=== PATIENT | male | born 1955 | race Caucasian/White ===

== ENCOUNTER 2022-07-01 10:34 | Outpatient (CLI) | payer BC, SELFPAY ==
[2022-07-01 13:51] LABS: Kit Draw Collected
== END 2022-07-01 10:35 | disposition home or self-care (01) ==
PROVIDERS: PCP Internal Medicine; Visit Provider Clinical Nurse Specialist
DX: E78.00 Pure hypercholesterolemia, unspecified (principal); I10 Essential (primary) hypertension; Z12.5 Encounter for screening for malignant neoplasm of prostate
CPT/HCPCS: 36415

== ENCOUNTER → 2022-07-04 11:04 | Outpatient (CLI) | payer BC, SELFPAY ==
--- NOTE | ~2022-07-04 | US_ITS ---
EXAMINATION: US right upper quadrant DATE: 07/04/2022 11:21 INDICATION: R10.11 - Right upper quadrant pain TECHNIQUE: Multiple grayscale and Doppler ultrasound images of the right upper quadrant were obtained . COMPARISON: None available. FINDINGS: The visualized portions of the pancreas are normal. The liver is mildly enlarged with incre ased echogenicity and normal echotexture. No surface nodularity. Normal hepatopetal flow in the main portal vein. The gallbladder is normal with no abnormal wall thickening, pericholecystic fluid or sto bella. The common bile duct measures 5 mm. There was no sonographic Montano sign. IMPRESSION: Hepatomegaly. Echogenic liver, most commonly due to steatosis but also can be seen with hepatitis and fibrosis. Reviewed, dictated and finalized at location K. NG MARKER IMPRESSION: Hepatomegaly. Echogenic liver, most commonly due to steatosis but also can be s een with hepatitis and fibrosis.
== END ==
PROVIDERS: PCP Clinical Nurse Specialist; Visit Provider Clinical Nurse Specialist
DX: R10.11 Right upper quadrant pain (principal); R16.0 Hepatomegaly, not elsewhere classified
CPT/HCPCS: 76705

== ENCOUNTER 2022-07-11 07:36 | Outpatient (CLI) | payer BC, SELFPAY ==
--- NOTE | ~2022-07-11 | NM_ITS ---
EXAMINATION: NM hepatobiliary wo pharm DATE: 07/11/2022 11:13 INDICATION: Right upper quadrant abdominal pain COMPARISON: None. TECHNIQUE: 5 mCi Tc-99m mebrofenin (Choletec) was administered intravenously. Scintigraphic images o f the abdomen were obtained for one hour. At the 1 hour time point, the patient drank 8 oz Ensure, an d imaging was continued for 60 minutes. Gallbladder ejection fraction was calculated by the technolog ist. FINDINGS: There is normal clearance of radiotracer from the blood pool. There is homogeneous tracer u ptake by the liver. Activity progresses to the bowel and gallbladder. The gallbladder ejection fract ion (GBEF) is 91%. Note that with this technique, normal GBEF >= 33%. IMPRESSION: 1. Normal hepatobiliary scan Reviewed, dictated and finalized at location B. [employer]
== END 2022-07-11 07:37 | disposition home or self-care (01) ==
PROVIDERS: PCP Clinical Nurse Specialist; Visit Provider Clinical Nurse Specialist
DX: R10.11 Right upper quadrant pain (principal)
CPT/HCPCS: 78226; A9537

== ENCOUNTER → 2022-07-29 09:18 | Outpatient (CLI) | payer BC, SELFPAY ==
--- NOTE | ~2022-07-29 | CT_ITS ---
CT of the Abdomen and Pelvis: Indication: Right upper quadrant pain Technique: 2.5 mm axial scans were obtained through the abdomen and pelvis prior to and following in travenous administration of 100 cc of Omnipaque 350. Dose reduction technique was used on this scan b y utilizing automated exposure control and iterative reconstruction technique. The dose-length produc t (DLP) was 2456.32 mGy-cm. Findings: Scans through the lung bases are unremarkable. Diffuse fatty infiltration of the liver noted. The spleen, pancreas, gallbladder, left adrenal gland, and kidneys are within normal limits. 2 cm right adrenal lipoma or myelolipoma is present, benign. N o evidence of aortic aneurysm. No lymphadenopathy. No bowel obstruction or bowel wall thickening. Extensive sigmoid diverticulosis noted. Normal appendi x. Images through the pelvis were performed. Urinary bladder unremarkable. Prostate gland and seminal ve sicles are unremarkable. Impression: Diffuse fatty infiltration of the liver. 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 Reviewed, dictated and finalized at location . LLIGENCE MANAGER Impression: Diffuse fatty infiltration of the liver. 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
[2022-07-29 09:42] LABS: Estimated Glomerular Filt Rate > 60
== END ==
PROVIDERS: PCP Internal Medicine; Visit Provider Clinical Nurse Specialist
DX: K76.0 Fatty (change of) liver, not elsewhere classified (principal); R10.11 Right upper quadrant pain; D17.79 Benign lipomatous neoplasm of other sites
CPT/HCPCS: 74178; Q9967

== ENCOUNTER 2022-08-24 00:19 | Day surgery (SDC) | payer BC, SELFPAY ==
[2022-08-15 08:33] VITALS: BMI 32.5
--- NOTE | 2022-08-23 15:02 | PM.HPGS ---
History of Present Illness History of Present Illness Consent: Risks, benefits, and alternatives have been discussed and questions answered. Patient agrees to proceed with procedure. Chief complaint: GERD, family hx colon ca Narrative: Sonny Gonzales is a 66 year old male who has a long history of acid reflux. He has been taking omeprazole p.r.n.. He is now having more symptoms. Eating steak makes him more uncomfortable. often the food will seem to get stuck and he will find that he needs to stop eating. He will bring up thick phlegm He is due for colon cancer screening. His last colonoscopy was about 5 years ago revealing diverticulosis. His father had colon cancer at age of 62. Review of Systems Review of Systems: All systems reviewed & are unremarkable except as noted in HPI and below PMFSH Past Medical History Medical History Gastroesophageal reflux disease Hypercholesterolemia Hyperglycemia Hypertension Obesity Surgical History Surgical History History of knee surgery Family History Family History Father Diabetes mellitus Myocardial infarction Vasculitis Mother Asthma Adult respiratory distress syndrome Social History Social History Social History: Caffeine-coffee Years smoked: 20 Smoking status: Never smoker Tobacco type: cigarettes Smoking end date: 07/24/02 Alcohol intake: current Drinks per week: 10 Alcohol use details: 3-4 days a week Living arrangements: with family Spiritual care concerns: No Meds Home Medications and Allergies Home Medications Medication Instructions Recorded Confirmed Type omeprazole 20 mg capsule,delayed 20 mg PO DAILY PRN acid reflux #90 05/20/21 08/15/22 Rx release caps lisinopril 20 mg tablet 20 mg PO DAILY #90 tabs 06/09/22 08/15/22 Rx atorvastatin 10 mg tablet 10 mg PO QHS #90 tabs 08/08/22 08/15/22 Rx Allergies Allergy/AdvReac Type Severity Reaction Status Date / Time nitroglycerin Allergy Unknown low heart Verified 08/15/22 08:31 rate Exam Const: General: alert Orientation/consciousness: patient oriented x3 Resp: Auscultation: clear to auscultation bilaterally Cardio: Rhythm: regular rhythm GI: GI Palp: Yes Soft to palpation and No Tenderness to palpation present (GI) Neuro: General: patient oriented x3 Assessment and Plan Assessment and plan (1) Gastroesophageal reflux disease: Qualifiers: Esophagitis presence: without esophagitis Qualified Code(s): K21.9 - Gastro-esophageal reflux disease without esophagitis Code(s): K21.9 - Gastro-esophageal reflux disease without esophagitis Status: Acute Assessment and Plan: EGD with possible biopsy or dilatation or cautery. (2) Screening for colon cancer: Code(s): Z12.11 - Encounter for screening for malignant neoplasm of colon Status: Acute Assessment and Plan: Colonoscopy with possible biopsy or polypectomy or cautery or injection of substances.
[2022-08-24 08:07] VITALS: PULSE 78; RESP 18; TEMP 36.7; O2SAT 100; BMI 32.9
[2022-08-24] MEDS: LACTATED RINGERS 1,000 ML 150 ML IV CONT (08:34)
--- NOTE | 2022-08-24 09:15 | WPDANESEPPF ---
Anes - Initial Pre Proc Eval Procedure: Operation Date: 08/24/22 09:30 Proposed Procedures p Esophagogastroduodenoscopy & Colonoscopy - Ricky Jj MD Date/Time: 08/24/22 09:15 Surgeon: Ricky Jj MD Pre Op Diagnosis: GERD, family hx colon ca Patient Data Age: 66 Gender: M Height: 1.78 m Weight: 104.2 kg Last Vital Signs Temp 98.1 F 08/24/22 08:07 Pulse 78 08/24/22 08:07 Resp 18 08/24/22 08:07 Pulse Ox 100 08/24/22 08:07 O2 Del Method Room Air 08/24/22 08:07 Allergies Allergy/AdvReac Type Severity Reaction Status Date / Time nitroglycerin Allergy Unknown low heart Verified 08/15/22 08:31 rate Home Medications Medication Instructions Recorded Confirmed Type omeprazole 20 mg capsule,delayed 20 mg PO DAILY PRN acid reflux #90 05/20/21 08/15/22 Rx release caps lisinopril 20 mg tablet 20 mg PO DAILY #90 tabs 06/09/22 08/15/22 Rx atorvastatin 10 mg tablet 10 mg PO QHS #90 tabs 08/08/22 08/15/22 Rx Patient hx anesthesia problems: none Family hx anesthesia problems: none Results Review: All pre-operative results and documents have been reviewed as part of the pre-operative evaluation. [facility] Past Medical History Medical History Gastroesophageal reflux disease Hypercholesterolemia Hyperglycemia Hypertension Obesity Surgical History Surgical History History of knee surgery Family History Family History Father Diabetes mellitus Myocardial infarction Vasculitis Mother Asthma Adult respiratory distress syndrome Social History Social History Social History: Caffeine-coffee Years smoked: 20 Smoking status: Never smoker Tobacco type: cigarettes Smoking end date: 07/24/02 Alcohol intake: current Drinks per week: 10 Alcohol use details: 3-4 days a week Living arrangements: with family Spiritual care concerns: No Anes - Eval Final PreProcedure Day of Procedure 08/24/22 09:15 Patient weight: obese Heart: regular rate and rhythm Lungs: clear to auscultation Airway: Mallampati scale class III Neurological: alert and oriented Last oral intake: >/= 8 hours ASA classification: III Emergent: no Anesthetic plan: proceed Anesthesia type and monitoring: general GIVS and standard monitoring Results Review: All pre-operative results and documents have been reviewed as part of the pre-operative evaluation. Informed Consent: The patient's anesthetic plan and its attendant risks and benefits were discussed with the patient/family/POA. Questions were solicited and answers provided to the satisfaction of the patient/family/POA.
--- NOTE | 2022-08-24 09:54 | SUR.OPER ---
EGD started at 926 and ended at 932. Colonoscopy started at 938 and ended at 54.
[2022-08-24 09:57] VITALS: PULSE 88; RESP 16; O2SAT 100
[2022-08-24 10:07] VITALS: BP 116/84; PULSE 77; RESP 24; O2SAT 100
[2022-08-24 10:17] VITALS: BP 124/77; PULSE 74; RESP 22; O2SAT 100
== END 2022-08-24 10:20 | disposition home or self-care (01) ==
PROVIDERS: PCP Internal Medicine; Visit Provider Internal Medicine Gastroenterology
PROC: 0DJ08ZZ Inspection of Upper Intestinal Tract, Via Natural or Artificial Opening Endoscopic (ICD-10-PCS; CPT 43235; principal; 2022-08-24 09:30)
DX: Z12.11 Encounter for screening for malignant neoplasm of colon (principal); K57.30 Diverticulosis of large intestine without perforation or abscess without bleeding; D12.4 Benign neoplasm of descending colon; Z80.0 Family history of malignant neoplasm of digestive organs; K21.00 Gastro-esophageal reflux disease with esophagitis, without bleeding; K22.2 Esophageal obstruction; K22.89 Other specified disease of esophagus; K44.9 Diaphragmatic hernia without obstruction or gangrene; I10 Essential (primary) hypertension; E78.00 Pure hypercholesterolemia, unspecified; E66.9 Obesity, unspecified; Z68.33 Body mass index [BMI] 33.0-33.9, adult; Z87.891 Personal history of nicotine dependence
CPT/HCPCS: 45385; 43249; 88305; 88312; 88342; C1726; J2704; J7120

== ENCOUNTER 2023-04-11 08:38 | Outpatient (CLI) | payer MEDICARE, SELFPAY ==
[2023-04-11 16:40] LABS: Basophils Percent Auto 0.5 % (0.2-1.2); Eosinophils Absolute Auto 0.1 K/mm3 (0-0.3); Eosinophils Percent Auto 1.7 % (0-4.4); Hematocrit 46.2 % (42.0-52.0); Hemoglobin 15.4 g/dL (14.0-18.0); Immature Granulocyte Absolute 0.04 K/mm3 (0.00-0.031); Immature Granulocyte Percent A 0.5 % (0-0.5); Lymphocytes Absolute Auto 1.79 K/mm3 (0.9-3.2); Lymphocytes Percent Auto 21.2 % (18.3-44.2); Mean Corpuscular HGB Conc 33.3 g/dl (32-36); Mean Corpuscular Hemoglobin 32.6 pg (26-34); Mean Corpuscular Volume 97.9 fl (80-100); Mean Platelet Volume 9.5 fl (7.4-10.4); Monocytes Absolute Auto 0.8 K/mm3 (0.1-0.6); Monocytes Percent Auto 9.3 % (2.6-8.5); Neutrophils Absolute Auto 5.7 K/mm3 (1.3-6.7); Neutrophils Percent Auto 66.8 % (45.5-73.1); Platelet Count Result 281 k/mm3 (150-375); Red Blood Count 4.72 M/mm3 (4.6-6.20); Red Cell Distribution Width 12.7 % (11.5-14.5); White Blood Count 8.5 K/mm3 (4.5-10.0)
[2023-04-11 17:08] LABS: Alanine Aminotransferase 69 U/L (6-50); Albumin Level 4.3 g/dL (3.5-5.1); Alkaline Phosphatase 68 U/L (38-126); Anion Gap 8 mmol/L (8-16); Aspartate Amino Transferase 58 U/L (17-59); Bilirubin,Total 0.8 mg/dL (0.2-1.3); Blood Urea Nitrogen 14 mg/dL (9-20); Calcium 8.7 mg/dL (8.4-10.2); Carbon Dioxide 28 mmol/L (22-30); Chloride 102 mmol/L (98-107); Cholesterol 174 mg/dL (0-200); Estimated Glomerular Filt Rate > 60; Glucose 99 mg/dL (65-110); HDL Direct 49 mg/dL; Potassium 4.6 mmol/L (3.4-5.0); Sodium 138 mmol/L (137-145); Triglycerides 132 mg/dL (<150)
[2023-04-11 17:19] LABS: LDL Cholesterol Direct 101 mg/dL
[2023-04-11 19:15] LABS: Hemoglobin A1C 4.8 % (<5.7)
[2023-04-12 17:36] LABS: Prostate Specific Antigen 0.2 ng/mL (< OR = 4.0)
== END 2023-04-11 08:39 | disposition home or self-care (01) ==
PROVIDERS: PCP Internal Medicine; Visit Provider Clinical Nurse Specialist
DX: I10 Essential (primary) hypertension (principal); Z13.228 Encounter for screening for other metabolic disorders; Z12.5 Encounter for screening for malignant neoplasm of prostate; E78.00 Pure hypercholesterolemia, unspecified; R73.9 Hyperglycemia, unspecified
CPT/HCPCS: 36415; 80053; 80061; 83036; 84153; 84443; 85025; G0103

== ENCOUNTER 2023-05-11 05:44 | Day surgery (SDC) | payer MEDICARE, SELFPAY ==
[2023-04-12 10:41] VITALS: BMI 33.3
--- NOTE | 2023-05-10 14:30 | PM.HPGS ---
History of Present Illness History of Present Illness Consent: Risks, benefits, and alternatives have been discussed and questions answered. Patient agrees to proceed with procedure. Chief complaint: Gerd Narrative: Sonny Gonzales is a 67 year old male who has dysphagia and earlier this year was found to have a severe stricture in the distal esophagus. He could only be dilated up to 15 mm at that time. He also had ulcerations in his esophagus. He has been taking omeprazole 40 mg daily, In doing fairly well with his swallowing. Review of Systems Review of Systems: All systems reviewed & are unremarkable except as noted in HPI and below PMFSH Past Medical History Medical History Cellulitis at site of vaccination Gastroesophageal reflux disease Hypercholesterolemia Hyperglycemia Hypertension Obesity Surgical History Surgical History History of knee surgery Family History Family History Father Diabetes mellitus Myocardial infarction Vasculitis Mother Asthma Adult respiratory distress syndrome Social History Social History Social History: Caffeine-coffee Years smoked: 20 Smoking status: Former smoker Tobacco type: cigarettes Smoking end date: 07/24/02 Additional smoking assessment comments: quit smoking about 18 years ago Alcohol intake: current Drinks per week: 10 Alcohol use details: 3-4 days a week Substance use type: does not use Lack of Transportation: No Lack of Food: Never True Current Housing: I Have Housing Concerned About Future Housing: No Difficulty Paying Gas/Electric Bills: No Difficulty Paying for Meds: No Currently Unemployed: No Education: Bachelor's Degree Difficulty w/ Childcare or Family Care: No Living arrangements: with family Spiritual care concerns: No Meds Home Medications and Allergies Home Medications Medication Instructions Recorded Confirmed Type omeprazole 40 mg capsule,delayed 40 mg PO DAILY #30 caps 08/24/22 05/11/23 Rx release lisinopril 20 mg tablet 20 mg PO DAILY #90 tabs 04/20/23 05/11/23 Rx magnesium glycinate 100 mg PO DAILY 04/21/23 05/11/23 History atorvastatin 10 mg tablet 10 mg PO QHS #90 tabs 05/03/23 05/11/23 Rx Allergies Allergy/AdvReac Type Severity Reaction Status Date / Time nitroglycerin Allergy Unknown low heart Verified 05/11/23 07:18 rate Exam Const: General: alert Orientation/consciousness: patient oriented x3 Resp: Auscultation: clear to auscultation bilaterally Cardio: Rhythm: regular rhythm GI: GI Palp: Yes Soft to palpation and No Tenderness to palpation present (GI) Neuro: General: patient oriented x3 Assessment and Plan Assessment and plan (1) Esophageal stricture: Code(s): K22.2 - Esophageal obstruction Status: Acute Assessment and Plan: EGD with possible biopsy or dilatation or cautery.
[2023-05-11 07:21] VITALS: BP 132/87; PULSE 83; RESP 20; TEMP 36.8; O2SAT 99
[2023-05-11] MEDS: LACTATED RINGERS 1,000 ML 150 ML IV CONT (07:33)
--- NOTE | 2023-05-11 08:10 | WPDANESEPPF ---
Anes - Initial Pre Proc Eval Procedure: Operation Date: 05/11/23 08:30 Proposed Procedures p Esophagogastroduodenoscopy - Ricky Jj MD Date/Time: 05/11/23 08:10 Surgeon: Ricky Jj MD Pre Op Diagnosis: Gerd Patient Data Age: 67 Gender: M Height: 1.78 m Weight: 104.2 kg Last Vital Signs Temp 36.8 C 05/11/23 07:21 Pulse 83 05/11/23 07:21 Resp 20 05/11/23 07:21 BP 132/87 05/11/23 07:21 Pulse Ox 99 05/11/23 07:21 O2 Del Method Room Air 05/11/23 07:21 Allergies Allergy/AdvReac Type Severity Reaction Status Date / Time nitroglycerin Allergy Unknown low heart Verified 05/11/23 07:18 rate Home Medications Medication Instructions Recorded Confirmed Type omeprazole 40 mg capsule,delayed 40 mg PO DAILY #30 caps 08/24/22 05/11/23 Rx release lisinopril 20 mg tablet 20 mg PO DAILY #90 tabs 04/20/23 05/11/23 Rx magnesium glycinate 100 mg PO DAILY 04/21/23 05/11/23 History atorvastatin 10 mg tablet 10 mg PO QHS #90 tabs 05/03/23 05/11/23 Rx Patient hx anesthesia problems: none Family hx anesthesia problems: none Results Review: All pre-operative results and documents have been reviewed as part of the pre-operative evaluation. [facility] Past Medical History Medical History Cellulitis at site of vaccination Gastroesophageal reflux disease Hypercholesterolemia Hyperglycemia Hypertension Obesity Surgical History Surgical History History of knee surgery Family History Family History Father Diabetes mellitus Myocardial infarction Vasculitis Mother Asthma Adult respiratory distress syndrome Social History Social History Social History: Caffeine-coffee Years smoked: 20 Smoking status: Former smoker Tobacco type: cigarettes Smoking end date: 07/24/02 Additional smoking assessment comments: quit smoking about 18 years ago Alcohol intake: current Drinks per week: 10 Alcohol use details: 3-4 days a week Substance use type: does not use Lack of Transportation: No Lack of Food: Never True Current Housing: I Have Housing Concerned About Future Housing: No Difficulty Paying Gas/Electric Bills: No Difficulty Paying for Meds: No Currently Unemployed: No Education: Bachelor's Degree Difficulty w/ Childcare or Family Care: No Living arrangements: with family Spiritual care concerns: No Anes - Eval Final PreProcedure Day of Procedure 05/11/23 08:10 Patient weight: obese Heart: regular rate and rhythm Lungs: clear to auscultation Airway: Mallampati scale class II Neurological: alert and oriented Last oral intake: >/= 8 hours ASA classification: III Emergent: no Anesthetic plan: proceed Anesthesia type and monitoring: general GIVS and standard monitoring Results Review: All pre-operative results and documents have been reviewed as part of the pre-operative evaluation. Informed Consent: The patient's anesthetic plan and its attendant risks and benefits were discussed with the patient/family/POA. Questions were solicited and answers provided to the satisfaction of the patient/family/POA.
--- NOTE | 2023-05-11 08:10 | WPDANESPN ---
Anes - Prog Note Post-Op Date/Time: 05/11/23 08:10 Cardiovascular status: normal Respiratory status: normal Airway patency: baseline Mental status: baseline Post-Op hydration status: normal Vital Signs: Last Vital Signs Temp 36.8 C 05/11/23 07:21 Pulse 83 05/11/23 07:21 Resp 20 05/11/23 07:21 BP 132/87 05/11/23 07:21 Pulse Ox 99 05/11/23 07:21 O2 Del Method Room Air 05/11/23 07:21 Pain Score (VAS): 0 Patient Feedback: Patient satisfied with anesthetic care.
[2023-05-11 08:48] VITALS: BP 114/78; PULSE 78; RESP 14; O2SAT 100
[2023-05-11 08:58] VITALS: BP 108/72; PULSE 75; RESP 18; O2SAT 100
[2023-05-11 09:08] VITALS: BP 102/72; PULSE 68; RESP 18; O2SAT 99
== END 2023-05-11 09:23 | disposition home or self-care (01) ==
PROVIDERS: PCP Internal Medicine; Visit Provider Internal Medicine Gastroenterology
PROC: 0DJ08ZZ Inspection of Upper Intestinal Tract, Via Natural or Artificial Opening Endoscopic (ICD-10-PCS; CPT 43235; principal; 2023-05-11 08:30)
DX: K22.2 Esophageal obstruction (principal); K21.00 Gastro-esophageal reflux disease with esophagitis, without bleeding; K44.9 Diaphragmatic hernia without obstruction or gangrene
CPT/HCPCS: 43239

== ENCOUNTER 2023-05-11 07:00 | Outpatient (NON) | payer MEDICARE, SELFPAY | END 2023-05-11 07:01 | disposition home or self-care (01) | PROVIDERS: PCP Internal Medicine; Visit Provider Internal Medicine Gastroenterology | DX: C15.5 Malignant neoplasm of lower third of esophagus (principal); K21.9 Gastro-esophageal reflux disease without esophagitis | CPT/HCPCS: 88305; 88342 ==

== ENCOUNTER 2023-10-10 09:26 | Outpatient (CLI) | payer MEDICARE, SELFPAY ==
[2023-10-10 13:37] LABS: Basophils Percent Auto 0.6 % (0.2-1.2); Eosinophils Absolute Auto 0.1 K/mm3 (0-0.3); Eosinophils Percent Auto 0.9 % (0-4.4); Hematocrit 47.4 % (42.0-52.0); Hemoglobin 15.2 g/dL (14.0-18.0); Immature Granulocyte Absolute 0.03 K/mm3 (0.00-0.031); Immature Granulocyte Percent A 0.4 % (0-0.5); Lymphocytes Absolute Auto 1.88 K/mm3 (0.9-3.2); Lymphocytes Percent Auto 27.7 % (18.3-44.2); Mean Corpuscular HGB Conc 32.1 g/dl (32-36); Mean Corpuscular Hemoglobin 30.1 pg (26-34); Mean Corpuscular Volume 93.9 fl (80-100); Mean Platelet Volume 9.8 fl (7.4-10.4); Monocytes Absolute Auto 0.6 K/mm3 (0.1-0.6); Neutrophils Absolute Auto 4.2 K/mm3 (1.3-6.7); Neutrophils Percent Auto 61.4 % (45.5-73.1); Platelet Count Result 348 k/mm3 (150-375); Red Blood Count 5.05 M/mm3 (4.6-6.20); Red Cell Distribution Width 14.3 % (11.5-14.5); White Blood Count 6.8 K/mm3 (4.5-10.0)
[2023-10-10 13:39] LABS: Alanine Aminotransferase 25 U/L (6-50); Albumin Level 4.2 g/dL (3.5-5.1); Alkaline Phosphatase 93 U/L (38-126); Anion Gap 3 mmol/L (8-16); Aspartate Amino Transferase 40 U/L (17-59); Bilirubin,Total 0.7 mg/dL (0.2-1.3); Blood Urea Nitrogen 10 mg/dL (9-20); Calcium 9.4 mg/dL (8.4-10.2); Carbon Dioxide 30 mmol/L (22-30); Chloride 105 mmol/L (98-107); Cholesterol 201 mg/dL (0-200); Estimated Glomerular Filt Rate > 60; Glucose 109 mg/dL (65-110); HDL Direct 55 mg/dL; Potassium 4.1 mmol/L (3.4-5.0); Sodium 138 mmol/L (137-145); Triglycerides 161 mg/dL (<150)
[2023-10-10 13:50] LABS: LDL Cholesterol Direct 133 mg/dL
[2023-10-10 14:05] LABS: Thyroid Stimulating Hormone 0.497 uIU/mL (0.465-4.680)
== END 2023-10-10 09:27 | disposition home or self-care (01) ==
PROVIDERS: PCP Internal Medicine; Visit Provider Clinical Nurse Specialist
DX: Z12.5 Encounter for screening for malignant neoplasm of prostate (principal); R10.11 Right upper quadrant pain; K76.0 Fatty (change of) liver, not elsewhere classified; C16.0 Malignant neoplasm of cardia; I10 Essential (primary) hypertension
CPT/HCPCS: 36415; 80053; 80061; 84443; 85025